=== PATIENT | male | born 1970 | race African-American/Black ===

== ENCOUNTER 2022-11-17 15:28 | Inpatient (IN) | payer OTHER ==
[2022-11-17 15:48] VITALS: BMI 27.1
[2022-11-17] MEDS ORDERED: BENZONATATE 200 MG CAPSULE PO PRN (16:55)
[2022-11-17] MEDS ORDERED: guaiFENesin 600 MG TABLET.ER (FP) PO PRN (16:55)
[2022-11-17] MEDS ORDERED: ACETAMINOPHEN 325 MG TABLET (FP) PO PRN (16:55)
[2022-11-17] MEDS ORDERED: NICOTINE 10 MG CARTRIDGE (INHALER) IH PRN (16:55)
[2022-11-17] MEDS ORDERED: P-EPHED 60MG/TRIPROLIDI 2.5MG TABLET PO PRN (16:55)
[2022-11-17] MEDS ORDERED: LOPERAMIDE HCL 2 MG CAPSULE PO PRN (16:55)
[2022-11-17] MEDS ORDERED: IBUPROFEN 400 MG TABLET (FP) PO PRN (16:55)
[2022-11-17] MEDS ORDERED: IBUPROFEN 600 MG TABLET (FP) PO PRN (16:55)
[2022-11-17] MEDS ORDERED: BENZOCAINE/MENTHOL (CHLORASEPTIC ) LOZENGE MM PRN (16:55)
[2022-11-17] MEDS ORDERED: TUBERCULIN PPD 5 TU/0.1ML SYRINGE (IN PATIENT USE ONLY) ID ONE (20:00)
[2022-11-17] MEDS ORDERED: ENALAPRIL MALEATE 5 MG TABLET PO ONE (20:00)
[2022-11-17] MEDS ORDERED: TUBERCULIN PPD 5 TU/0.1ML VIAL ID ONE (21:11)
[2022-11-17] MEDS: ATORVASTATIN CA 40 MG TABLET (FP) PO SCH (21:18)
[2022-11-17] MEDS: THIAMINE HCL 100 MG TABLET (FP) PO SCH (21:18)
[2022-11-17] MEDS: ASPIRIN 81 MG CHEWABLE TABLETS PO SCH (21:19)
[2022-11-17] MEDS: INSULIN SLIDING SCALE (NOVOLOG) 1 VIAL SQ SCH ×2 (21:35→22:29)
[2022-11-18] MEDS: sitaGLIPtin PHOSPHATE 50 MG TABLET PO SCH (06:28)
[2022-11-18] MEDS: MAG HYDROX/AL HYDROX/SIMETH 30 ML UNIT-DOSE CUP PO PRN (06:30)
[2022-11-18] MEDS ORDERED: metFORMIN HCL 500 MG TABLET (FP) PO SCH ×3 (07:00→22:00)
[2022-11-18] MEDS: INSULIN SLIDING SCALE (NOVOLOG) 1 VIAL SQ SCH ×4 (07:42→21:33)
[2022-11-18] MEDS: amLODIPine BESYLATE 10 MG TABLET (FP) PO SCH (09:42)
[2022-11-18] MEDS: PRENATAL VITAMINS W/ FOLIC ACID TABLET (FP) PO SCH (09:42)
[2022-11-18] MEDS: ASPIRIN 81 MG CHEWABLE TABLETS PO SCH (09:42)
[2022-11-18 11:49] LABS: HEMATOCRIT 40.5 % (35.4-49); HEMOGLOBIN 13.5 GM/dL (11.7-16.9); MCHC 33.3 g/dl (32.0-35.9); MEAN CELL VOLUME 84.1 fl (80-96); MEAN PLT VOLUME 10.7 fl (7.5-11.1); PLATELET COUNT 138 10^3/uL (134-434); RBC 4.82 M/mm3 (4.00-5.60); RDW 15.9 % (11.9-15.9); WHITE BLOOD COUNT 8.2 K/mm3 (4.0-10.0)
[2022-11-18 11:55] LABS: URINE APPEARANCE CLEAR; URINE BILIRUBIN NEGATIVE (NEGATIVE); URINE COLOR YELLOW; URINE GLUCOSE (UA) 3+ (NEGATIVE); URINE KETONE NEGATIVE (NEGATIVE); URINE LEUK ESTERASE NEGATIVE (NEGATIVE); URINE NITRITE NEGATIVE (NEGATIVE); URINE PROTEIN NEGATIVE (NEGATIVE); URINE UROBILINOGEN 0.2 mg/dL (0.2-1.0)
[2022-11-18 11:56] LABS: CALCIUM 10.2 mg/dL (8.5-10.1)
[2022-11-18 11:57] LABS: ALBUMIN 3.8 g/dl (3.4-5.0); BLOOD UREA NITROGEN 14.9 mg/dL (7-18)
[2022-11-18 12:00] LABS: CREATININE 0.9 mg/dL (0.55-1.3)
[2022-11-18 12:01] LABS: BILIRUBIN,TOTAL 0.4 mg/dL (0.2-1); TOT PROT 7.4 g/dl (6.4-8.2)
[2022-11-18] MEDS ORDERED: metFORMIN HCL 500 MG TABLET (FP) PO ONE (14:41)
[2022-11-18] MEDS: ERTUGLIFLOZIN PIDOLATE 15 MG PO SCH (15:09)
[2022-11-18] MEDS: PANTOPRAZOLE 40 MG TABLET PO SCH (15:09)
[2022-11-18] MEDS: ATORVASTATIN CA 40 MG TABLET (FP) PO SCH (21:23)
[2022-11-18] MEDS: MELATONIN 5 MG TABLETS PO PRN (21:23)
[2022-11-18] MEDS: THIAMINE HCL 100 MG TABLET (FP) PO SCH (21:23)
[2022-11-18] MEDS: metFORMIN HCL 500 MG TABLET (FP) PO SCH (21:26)
[2022-11-18] MEDS: INSULIN (LEVEMIR) 100 UNITS/ML UNITS SQ SCH (21:33)
[2022-11-19] MEDS: metFORMIN HCL 500 MG TABLET (FP) PO SCH ×2 (06:29→21:19)
[2022-11-19] MEDS: sitaGLIPtin PHOSPHATE 50 MG TABLET PO SCH (06:29)
[2022-11-19] MEDS: ERTUGLIFLOZIN PIDOLATE 15 MG PO SCH (06:30)
[2022-11-19] MEDS: INSULIN SLIDING SCALE (NOVOLOG) 1 VIAL SQ SCH ×4 (06:31→21:19)
[2022-11-19] MEDS: PRENATAL VITAMINS W/ FOLIC ACID TABLET (FP) PO SCH (10:06)
[2022-11-19] MEDS: amLODIPine BESYLATE 10 MG TABLET (FP) PO SCH (10:06)
[2022-11-19] MEDS: ENALAPRIL MALEATE 10 MG TABLET PO SCH (10:06)
[2022-11-19] MEDS: PANTOPRAZOLE 40 MG TABLET PO SCH (10:06)
[2022-11-19] MEDS: ASPIRIN 81 MG CHEWABLE TABLETS PO SCH (10:06)
[2022-11-19] MEDS ORDERED: INSULIN SLIDING SCALE (NOVOLOG) 1 VIAL SQ ONE (11:54)
[2022-11-19] MEDS: INSULIN (LEVEMIR) 100 UNITS/ML UNITS SQ SCH (21:17)
[2022-11-19] MEDS: THIAMINE HCL 100 MG TABLET (FP) PO SCH (21:19)
[2022-11-19] MEDS: MELATONIN 5 MG TABLETS PO PRN (21:19)
[2022-11-19] MEDS: ATORVASTATIN CA 40 MG TABLET (FP) PO SCH (21:19)
[2022-11-20] MEDS: INSULIN SLIDING SCALE (NOVOLOG) 1 VIAL SQ SCH ×4 (06:16→21:18)
[2022-11-20] MEDS: metFORMIN HCL 500 MG TABLET (FP) PO SCH ×2 (06:18→21:15)
[2022-11-20] MEDS: sitaGLIPtin PHOSPHATE 50 MG TABLET PO SCH (06:18)
[2022-11-20] MEDS: ERTUGLIFLOZIN PIDOLATE 15 MG PO SCH (06:20)
[2022-11-20] MEDS: amLODIPine BESYLATE 10 MG TABLET (FP) PO SCH (09:36)
[2022-11-20] MEDS: ASPIRIN 81 MG CHEWABLE TABLETS PO SCH (09:36)
[2022-11-20] MEDS: ENALAPRIL MALEATE 10 MG TABLET PO SCH (09:36)
[2022-11-20] MEDS: PRENATAL VITAMINS W/ FOLIC ACID TABLET (FP) PO SCH (09:36)
[2022-11-20] MEDS: PANTOPRAZOLE 40 MG TABLET PO SCH (09:36)
[2022-11-20] MEDS ORDERED: INSULIN SLIDING SCALE (NOVOLOG) 1 VIAL SQ ONE (11:44)
[2022-11-20] MEDS: ATORVASTATIN CA 40 MG TABLET (FP) PO SCH (21:15)
[2022-11-20] MEDS: THIAMINE HCL 100 MG TABLET (FP) PO SCH (21:16)
[2022-11-20] MEDS: MELATONIN 5 MG TABLETS PO PRN (21:16)
[2022-11-20] MEDS: INSULIN (LEVEMIR) 100 UNITS/ML UNITS SQ SCH (21:19)
[2022-11-21] MEDS: INSULIN SLIDING SCALE (NOVOLOG) 1 VIAL SQ SCH ×4 (06:48→21:17)
[2022-11-21] MEDS: metFORMIN HCL 500 MG TABLET (FP) PO SCH ×2 (06:49→21:13)
[2022-11-21] MEDS: sitaGLIPtin PHOSPHATE 50 MG TABLET PO SCH (06:49)
[2022-11-21] MEDS: ERTUGLIFLOZIN PIDOLATE 15 MG PO SCH (06:49)
[2022-11-21] MEDS: PRENATAL VITAMINS W/ FOLIC ACID TABLET (FP) PO SCH (10:17)
[2022-11-21] MEDS: ENALAPRIL MALEATE 10 MG TABLET PO SCH (10:18)
[2022-11-21] MEDS: ASPIRIN 81 MG CHEWABLE TABLETS PO SCH (10:19)
[2022-11-21] MEDS: PANTOPRAZOLE 40 MG TABLET PO SCH (10:19)
[2022-11-21] MEDS: amLODIPine BESYLATE 10 MG TABLET (FP) PO SCH (10:20)
[2022-11-21] MEDS: ATORVASTATIN CA 40 MG TABLET (FP) PO SCH (21:12)
[2022-11-21] MEDS: MELATONIN 5 MG TABLETS PO PRN (21:13)
[2022-11-21] MEDS: THIAMINE HCL 100 MG TABLET (FP) PO SCH (21:13)
[2022-11-21] MEDS: INSULIN (LEVEMIR) 100 UNITS/ML UNITS SQ SCH (21:16)
[2022-11-22] MEDS: sitaGLIPtin PHOSPHATE 50 MG TABLET PO SCH (06:17)
[2022-11-22] MEDS: metFORMIN HCL 500 MG TABLET (FP) PO SCH ×2 (06:18→21:25)
[2022-11-22] MEDS: ERTUGLIFLOZIN PIDOLATE 15 MG PO SCH (06:37)
[2022-11-22] MEDS: INSULIN SLIDING SCALE (NOVOLOG) 1 VIAL SQ SCH ×4 (07:21→21:29)
[2022-11-22] MEDS: PRENATAL VITAMINS W/ FOLIC ACID TABLET (FP) PO SCH (09:52)
[2022-11-22] MEDS: PANTOPRAZOLE 40 MG TABLET PO SCH (09:52)
[2022-11-22] MEDS: amLODIPine BESYLATE 10 MG TABLET (FP) PO SCH (09:52)
[2022-11-22] MEDS: ASPIRIN 81 MG CHEWABLE TABLETS PO SCH (09:53)
[2022-11-22] MEDS: ENALAPRIL MALEATE 10 MG TABLET PO SCH (09:53)
[2022-11-22] MEDS: ATORVASTATIN CA 40 MG TABLET (FP) PO SCH (21:25)
[2022-11-22] MEDS: THIAMINE HCL 100 MG TABLET (FP) PO SCH (21:25)
[2022-11-22] MEDS: INSULIN (LEVEMIR) 100 UNITS/ML UNITS SQ SCH (21:29)
[2022-11-23] MEDS: metFORMIN HCL 500 MG TABLET (FP) PO SCH ×2 (06:58→21:40)
[2022-11-23] MEDS: sitaGLIPtin PHOSPHATE 50 MG TABLET PO SCH (06:59)
[2022-11-23] MEDS: INSULIN SLIDING SCALE (NOVOLOG) 1 VIAL SQ SCH ×4 (08:08→21:38)
[2022-11-23] MEDS: ERTUGLIFLOZIN PIDOLATE 15 MG PO SCH (08:08)
[2022-11-23] MEDS: ENALAPRIL MALEATE 10 MG TABLET PO SCH (09:57)
[2022-11-23] MEDS: PANTOPRAZOLE 40 MG TABLET PO SCH (09:57)
[2022-11-23] MEDS: ASPIRIN 81 MG CHEWABLE TABLETS PO SCH (09:58)
[2022-11-23] MEDS: amLODIPine BESYLATE 10 MG TABLET (FP) PO SCH (09:58)
[2022-11-23] MEDS: PRENATAL VITAMINS W/ FOLIC ACID TABLET (FP) PO SCH (09:58)
[2022-11-23] MEDS ORDERED: INSULIN SLIDING SCALE (NOVOLOG) 1 VIAL SQ ONE (11:58)
[2022-11-23] MEDS: INSULIN (LEVEMIR) 100 UNITS/ML UNITS SQ SCH (21:37)
[2022-11-23] MEDS: ATORVASTATIN CA 40 MG TABLET (FP) PO SCH (21:41)
[2022-11-23] MEDS: THIAMINE HCL 100 MG TABLET (FP) PO SCH (21:41)
[2022-11-24] MEDS: MAG HYDROX/AL HYDROX/SIMETH 30 ML UNIT-DOSE CUP PO PRN ×2 (05:50→15:28)
[2022-11-24] MEDS: ERTUGLIFLOZIN PIDOLATE 15 MG PO SCH (06:57)
[2022-11-24] MEDS: sitaGLIPtin PHOSPHATE 50 MG TABLET PO SCH (06:58)
[2022-11-24] MEDS: metFORMIN HCL 500 MG TABLET (FP) PO SCH ×2 (06:59→21:42)
[2022-11-24] MEDS: INSULIN SLIDING SCALE (NOVOLOG) 1 VIAL SQ SCH ×4 (07:02→21:43)
[2022-11-24] MEDS: PANTOPRAZOLE 40 MG TABLET PO SCH (09:55)
[2022-11-24] MEDS: ENALAPRIL MALEATE 10 MG TABLET PO SCH (09:55)
[2022-11-24] MEDS: ASPIRIN 81 MG CHEWABLE TABLETS PO SCH (09:55)
[2022-11-24] MEDS: amLODIPine BESYLATE 10 MG TABLET (FP) PO SCH (09:55)
[2022-11-24] MEDS: PRENATAL VITAMINS W/ FOLIC ACID TABLET (FP) PO SCH (09:55)
[2022-11-24] MEDS ORDERED: INSULIN SLIDING SCALE (NOVOLOG) 1 VIAL SQ ONE ×2 (11:50→16:47)
[2022-11-24] MEDS ORDERED: [UNRECOGNIZED DRUG - OTHER] PO SCH (12:45)
[2022-11-24] MEDS ORDERED: ERTUGLIFLOZIN PO SCH (12:45)
[2022-11-24] MEDS ORDERED: SITAGLIPTIN PO SCH (12:45)
[2022-11-24] MEDS ORDERED: ERTUGLIFLOZIN PIDOLATE 5 MG PO SCH (14:13)
[2022-11-24] MEDS: ERTUGLIFLOZIN PIDOLATE 5 MG PO SCH (15:26)
[2022-11-24] MEDS: MELATONIN 5 MG TABLETS PO PRN (21:40)
[2022-11-24] MEDS: THIAMINE HCL 100 MG TABLET (FP) PO SCH (21:40)
[2022-11-24] MEDS: ATORVASTATIN CA 40 MG TABLET (FP) PO SCH (21:41)
[2022-11-24] MEDS: INSULIN (LEVEMIR) 100 UNITS/ML UNITS SQ SCH (21:45)
[2022-11-24] MEDS ORDERED: INSULIN (LEVEMIR) 100 UNITS/ML UNITS SQ ONE (22:45)
[2022-11-25] MEDS: sitaGLIPtin PHOSPHATE 50 MG TABLET PO SCH (06:30)
[2022-11-25] MEDS: metFORMIN HCL 500 MG TABLET (FP) PO SCH ×2 (06:30→21:02)
[2022-11-25] MEDS: ERTUGLIFLOZIN PIDOLATE 5 MG PO SCH (06:31)
[2022-11-25] MEDS: INSULIN SLIDING SCALE (NOVOLOG) 1 VIAL SQ SCH ×4 (06:48→21:05)
[2022-11-25] MEDS: PANTOPRAZOLE 40 MG TABLET PO SCH (09:45)
[2022-11-25] MEDS: amLODIPine BESYLATE 10 MG TABLET (FP) PO SCH (09:45)
[2022-11-25] MEDS: PRENATAL VITAMINS W/ FOLIC ACID TABLET (FP) PO SCH (09:45)
[2022-11-25] MEDS: ASPIRIN 81 MG CHEWABLE TABLETS PO SCH (09:45)
[2022-11-25] MEDS: ENALAPRIL MALEATE 10 MG TABLET PO SCH (09:45)
[2022-11-25] MEDS ORDERED: PATIENT'S OWN MEDICATION (NON-FORMULARY) (Ertugliflozin Pidolate 5 MG Tablet) PO SCH (10:00)
[2022-11-25] MEDS ORDERED: INSULIN SLIDING SCALE (NOVOLOG) 1 VIAL SQ ONE (11:56)
[2022-11-25] MEDS: ATORVASTATIN CA 40 MG TABLET (FP) PO SCH (21:02)
[2022-11-25] MEDS: THIAMINE HCL 100 MG TABLET (FP) PO SCH (21:02)
[2022-11-25] MEDS: MELATONIN 5 MG TABLETS PO PRN (21:02)
[2022-11-25] MEDS: INSULIN (LEVEMIR) 100 UNITS/ML UNITS SQ SCH (21:05)
[2022-11-26] MEDS: sitaGLIPtin PHOSPHATE 50 MG TABLET PO SCH (06:15)
[2022-11-26] MEDS: metFORMIN HCL 500 MG TABLET (FP) PO SCH ×2 (06:15→21:05)
[2022-11-26] MEDS: ERTUGLIFLOZIN PIDOLATE 5 MG PO SCH (06:16)
[2022-11-26] MEDS: INSULIN SLIDING SCALE (NOVOLOG) 1 VIAL SQ SCH ×4 (06:16→21:07)
[2022-11-26] MEDS: amLODIPine BESYLATE 10 MG TABLET (FP) PO SCH (09:58)
[2022-11-26] MEDS: PRENATAL VITAMINS W/ FOLIC ACID TABLET (FP) PO SCH (09:58)
[2022-11-26] MEDS: PANTOPRAZOLE 40 MG TABLET PO SCH (09:58)
[2022-11-26] MEDS: ASPIRIN 81 MG CHEWABLE TABLETS PO SCH (09:58)
[2022-11-26] MEDS: ENALAPRIL MALEATE 10 MG TABLET PO SCH (09:58)
[2022-11-26] MEDS: THIAMINE HCL 100 MG TABLET (FP) PO SCH (21:05)
[2022-11-26] MEDS: ATORVASTATIN CA 40 MG TABLET (FP) PO SCH (21:05)
[2022-11-26] MEDS: MELATONIN 5 MG TABLETS PO PRN (21:05)
[2022-11-26] MEDS: INSULIN (LEVEMIR) 100 UNITS/ML UNITS SQ SCH (21:08)
[2022-11-27] MEDS: metFORMIN HCL 500 MG TABLET (FP) PO SCH ×2 (07:09→21:00)
[2022-11-27] MEDS: sitaGLIPtin PHOSPHATE 50 MG TABLET PO SCH (07:09)
[2022-11-27] MEDS: INSULIN SLIDING SCALE (NOVOLOG) 1 VIAL SQ SCH ×4 (07:11→21:01)
[2022-11-27] MEDS: ERTUGLIFLOZIN PIDOLATE 5 MG PO SCH (07:44)
[2022-11-27] MEDS: ENALAPRIL MALEATE 10 MG TABLET PO SCH (09:51)
[2022-11-27] MEDS: PRENATAL VITAMINS W/ FOLIC ACID TABLET (FP) PO SCH (09:51)
[2022-11-27] MEDS: amLODIPine BESYLATE 10 MG TABLET (FP) PO SCH (09:52)
[2022-11-27] MEDS: PANTOPRAZOLE 40 MG TABLET PO SCH (09:52)
[2022-11-27] MEDS: ASPIRIN 81 MG CHEWABLE TABLETS PO SCH (09:52)
[2022-11-27] MEDS ORDERED: INSULIN SLIDING SCALE (NOVOLOG) 1 VIAL SQ ONE (11:57)
[2022-11-27] MEDS: ATORVASTATIN CA 40 MG TABLET (FP) PO SCH (21:00)
[2022-11-27] MEDS: MELATONIN 5 MG TABLETS PO PRN (21:01)
[2022-11-27] MEDS: INSULIN (LEVEMIR) 100 UNITS/ML UNITS SQ SCH (21:01)
[2022-11-27] MEDS: THIAMINE HCL 100 MG TABLET (FP) PO SCH (21:01)
[2022-11-28] MEDS: metFORMIN HCL 500 MG TABLET (FP) PO SCH ×2 (06:11→21:06)
[2022-11-28] MEDS: sitaGLIPtin PHOSPHATE 50 MG TABLET PO SCH (06:11)
[2022-11-28] MEDS: ERTUGLIFLOZIN PIDOLATE 5 MG PO SCH (06:12)
[2022-11-28] MEDS: INSULIN SLIDING SCALE (NOVOLOG) 1 VIAL SQ SCH ×4 (06:35→22:04)
[2022-11-28] MEDS: PRENATAL VITAMINS W/ FOLIC ACID TABLET (FP) PO SCH (10:13)
[2022-11-28] MEDS: amLODIPine BESYLATE 10 MG TABLET (FP) PO SCH (10:13)
[2022-11-28] MEDS: ENALAPRIL MALEATE 10 MG TABLET PO SCH (10:13)
[2022-11-28] MEDS: PANTOPRAZOLE 40 MG TABLET PO SCH (10:14)
[2022-11-28] MEDS: ASPIRIN 81 MG CHEWABLE TABLETS PO SCH (10:14)
[2022-11-28] MEDS: THIAMINE HCL 100 MG TABLET (FP) PO SCH (21:06)
[2022-11-28] MEDS: ATORVASTATIN CA 40 MG TABLET (FP) PO SCH (21:06)
[2022-11-28] MEDS: INSULIN (LEVEMIR) 100 UNITS/ML UNITS SQ SCH (22:01)
[2022-11-29] MEDS: INSULIN SLIDING SCALE (NOVOLOG) 1 VIAL SQ SCH ×4 (06:38→21:02)
[2022-11-29] MEDS: sitaGLIPtin PHOSPHATE 50 MG TABLET PO SCH (06:40)
[2022-11-29] MEDS: metFORMIN HCL 500 MG TABLET (FP) PO SCH ×2 (06:41→21:02)
[2022-11-29] MEDS: ERTUGLIFLOZIN PIDOLATE 5 MG PO SCH (06:45)
[2022-11-29] MEDS: PRENATAL VITAMINS W/ FOLIC ACID TABLET (FP) PO SCH (09:57)
[2022-11-29] MEDS: ENALAPRIL MALEATE 10 MG TABLET PO SCH (09:58)
[2022-11-29] MEDS: amLODIPine BESYLATE 10 MG TABLET (FP) PO SCH (09:58)
[2022-11-29] MEDS: PANTOPRAZOLE 40 MG TABLET PO SCH (09:58)
[2022-11-29] MEDS: ASPIRIN 81 MG CHEWABLE TABLETS PO SCH (09:58)
[2022-11-29] MEDS ORDERED: INSULIN SLIDING SCALE (NOVOLOG) 1 VIAL SQ ONE (11:42)
[2022-11-29] MEDS: THIAMINE HCL 100 MG TABLET (FP) PO SCH (21:01)
[2022-11-29] MEDS: ATORVASTATIN CA 40 MG TABLET (FP) PO SCH (21:02)
[2022-11-29] MEDS: MELATONIN 5 MG TABLETS PO PRN (21:02)
[2022-11-29] MEDS: INSULIN (LEVEMIR) 100 UNITS/ML UNITS SQ SCH (21:03)
[2022-11-30] MEDS: INSULIN SLIDING SCALE (NOVOLOG) 1 VIAL SQ SCH ×4 (06:40→21:00)
[2022-11-30] MEDS: sitaGLIPtin PHOSPHATE 50 MG TABLET PO SCH (06:41)
[2022-11-30] MEDS: ERTUGLIFLOZIN PIDOLATE 5 MG PO SCH (06:41)
[2022-11-30] MEDS: metFORMIN HCL 500 MG TABLET (FP) PO SCH ×2 (06:41→21:00)
[2022-11-30] MEDS: amLODIPine BESYLATE 10 MG TABLET (FP) PO SCH (09:56)
[2022-11-30] MEDS: PANTOPRAZOLE 40 MG TABLET PO SCH (09:56)
[2022-11-30] MEDS: ENALAPRIL MALEATE 10 MG TABLET PO SCH (09:56)
[2022-11-30] MEDS: PRENATAL VITAMINS W/ FOLIC ACID TABLET (FP) PO SCH (09:57)
[2022-11-30] MEDS: ASPIRIN 81 MG CHEWABLE TABLETS PO SCH (09:57)
[2022-11-30] MEDS ORDERED: INSULIN SLIDING SCALE (NOVOLOG) 1 VIAL SQ ONE (11:40)
[2022-11-30] MEDS: INSULIN (LEVEMIR) 100 UNITS/ML UNITS SQ SCH (21:00)
[2022-11-30] MEDS: ATORVASTATIN CA 40 MG TABLET (FP) PO SCH (21:00)
[2022-11-30] MEDS: THIAMINE HCL 100 MG TABLET (FP) PO SCH (21:00)
[2022-11-30] MEDS: MELATONIN 5 MG TABLETS PO PRN (21:00)
[2022-12-01] MEDS: sitaGLIPtin PHOSPHATE 50 MG TABLET PO SCH (06:48)
[2022-12-01] MEDS: metFORMIN HCL 500 MG TABLET (FP) PO SCH ×2 (06:48→21:03)
[2022-12-01] MEDS: ERTUGLIFLOZIN PIDOLATE 5 MG PO SCH (06:48)
[2022-12-01] MEDS: INSULIN SLIDING SCALE (NOVOLOG) 1 VIAL SQ SCH ×6 (06:51→22:40)
[2022-12-01] MEDS: ASPIRIN 81 MG CHEWABLE TABLETS PO SCH (09:54)
[2022-12-01] MEDS: ENALAPRIL MALEATE 10 MG TABLET PO SCH (09:54)
[2022-12-01] MEDS: amLODIPine BESYLATE 10 MG TABLET (FP) PO SCH (09:54)
[2022-12-01] MEDS: PANTOPRAZOLE 40 MG TABLET PO SCH (09:54)
[2022-12-01] MEDS: PRENATAL VITAMINS W/ FOLIC ACID TABLET (FP) PO SCH (09:54)
[2022-12-01] MEDS: ATORVASTATIN CA 40 MG TABLET (FP) PO SCH (21:03)
[2022-12-01] MEDS: THIAMINE HCL 100 MG TABLET (FP) PO SCH (21:03)
[2022-12-01] MEDS: INSULIN (LEVEMIR) 100 UNITS/ML UNITS SQ SCH (21:04)
[2022-12-02] MEDS: ERTUGLIFLOZIN PIDOLATE 5 MG PO SCH (07:00)
[2022-12-02] MEDS: metFORMIN HCL 500 MG TABLET (FP) PO SCH ×2 (07:00→21:18)
[2022-12-02] MEDS: sitaGLIPtin PHOSPHATE 50 MG TABLET PO SCH (07:00)
[2022-12-02] MEDS: INSULIN SLIDING SCALE (NOVOLOG) 1 VIAL SQ SCH ×4 (07:04→21:21)
[2022-12-02] MEDS: PANTOPRAZOLE 40 MG TABLET PO SCH (09:59)
[2022-12-02] MEDS: ENALAPRIL MALEATE 10 MG TABLET PO SCH (09:59)
[2022-12-02] MEDS: PRENATAL VITAMINS W/ FOLIC ACID TABLET (FP) PO SCH (09:59)
[2022-12-02] MEDS: ASPIRIN 81 MG CHEWABLE TABLETS PO SCH (09:59)
[2022-12-02] MEDS: amLODIPine BESYLATE 10 MG TABLET (FP) PO SCH (10:00)
[2022-12-02] MEDS ORDERED: INSULIN SLIDING SCALE (NOVOLOG) 1 VIAL SQ ONE (11:54)
[2022-12-02] MEDS: THIAMINE HCL 100 MG TABLET (FP) PO SCH (21:18)
[2022-12-02] MEDS: ATORVASTATIN CA 40 MG TABLET (FP) PO SCH (21:18)
[2022-12-02] MEDS: MELATONIN 5 MG TABLETS PO PRN (21:18)
[2022-12-02] MEDS: INSULIN (LEVEMIR) 100 UNITS/ML UNITS SQ SCH (21:21)
[2022-12-02] MEDS: MAG HYDROX/AL HYDROX/SIMETH 30 ML UNIT-DOSE CUP PO PRN (23:21)
[2022-12-03] MEDS: INSULIN SLIDING SCALE (NOVOLOG) 1 VIAL SQ SCH ×4 (06:33→21:28)
[2022-12-03] MEDS: sitaGLIPtin PHOSPHATE 50 MG TABLET PO SCH (06:34)
[2022-12-03] MEDS: ERTUGLIFLOZIN PIDOLATE 5 MG PO SCH (06:35)
[2022-12-03] MEDS: metFORMIN HCL 500 MG TABLET (FP) PO SCH ×2 (06:35→21:25)
[2022-12-03] MEDS: PANTOPRAZOLE 40 MG TABLET PO SCH (09:54)
[2022-12-03] MEDS: PRENATAL VITAMINS W/ FOLIC ACID TABLET (FP) PO SCH (09:54)
[2022-12-03] MEDS: ASPIRIN 81 MG CHEWABLE TABLETS PO SCH (09:54)
[2022-12-03] MEDS: amLODIPine BESYLATE 10 MG TABLET (FP) PO SCH (09:54)
[2022-12-03] MEDS: ENALAPRIL MALEATE 10 MG TABLET PO SCH (09:54)
[2022-12-03] MEDS: ATORVASTATIN CA 40 MG TABLET (FP) PO SCH (21:25)
[2022-12-03] MEDS: MELATONIN 5 MG TABLETS PO PRN (21:25)
[2022-12-03] MEDS: THIAMINE HCL 100 MG TABLET (FP) PO SCH (21:25)
[2022-12-03] MEDS: INSULIN (LEVEMIR) 100 UNITS/ML UNITS SQ SCH (21:28)
[2022-12-04 06:39] VITALS: BP 160/84; PULSE 109; RESP 17; TEMP 97.3
[2022-12-04] MEDS: INSULIN SLIDING SCALE (NOVOLOG) 1 VIAL SQ SCH (06:48)
[2022-12-04] MEDS: sitaGLIPtin PHOSPHATE 50 MG TABLET PO SCH (06:49)
[2022-12-04] MEDS: metFORMIN HCL 500 MG TABLET (FP) PO SCH (06:49)
[2022-12-04] MEDS: ERTUGLIFLOZIN PIDOLATE 5 MG PO SCH (06:50)
[2022-12-04] MEDS: ASPIRIN 81 MG CHEWABLE TABLETS PO SCH (09:06)
[2022-12-04] MEDS: PANTOPRAZOLE 40 MG TABLET PO SCH (09:06)
[2022-12-04] MEDS: amLODIPine BESYLATE 10 MG TABLET (FP) PO SCH (09:06)
[2022-12-04] MEDS: ENALAPRIL MALEATE 10 MG TABLET PO SCH (09:06)
[2022-12-04] MEDS: PRENATAL VITAMINS W/ FOLIC ACID TABLET (FP) PO SCH (09:06)
== END 2022-12-04 09:10 | disposition home or self-care (01) | DRG 772 ==
LOC: YASAS 15:28 → Y3W 19:35
PROVIDERS: ADMIT Allergy & Immunology; ATTEND Psychiatry & Neurology Pain Medicine
PROC: HZ42ZZZ Group Counseling for Substance Abuse Treatment, Cognitive-Behavioral (ICD-10-PCS; principal; 2022-11-17)
DX: F10.20 Alcohol dependence, uncomplicated (principal); F14.20 Cocaine dependence, uncomplicated; F17.210 Nicotine dependence, cigarettes, uncomplicated; I10 Essential (primary) hypertension; E78.5 Hyperlipidemia, unspecified; E11.9 Type 2 diabetes mellitus without complications; Z79.4 Long term (current) use of insulin
CPT/HCPCS: 36415; 71045-TC-FY; 80053; 81003; 82962; 85027; 86780; C9803-CS; U0003; U0005